=== PATIENT | male | born 1950 | race Caucasian/White ===

== ENCOUNTER 2017-05-03 22:56 | Emergency (ER) | payer MEDICARE, OTHER ==
[~2017-05-03] VITALS: Ht 167.6 cm; Wt 100.0 kg
[~2017-05-03 22:56] MED LIST: ATOR20TA PO; CANA300T PO; ECOT81TA2 PO; LISI40TA PO; MULT1TAB PO; PLAV75TA PO; VIAG100T PO; ZYVO600T PO
[2017-05-03 23:06] VITALS: PULSE 85; RESP 16; O2SAT 68
[2017-05-03] MEDS ORDERED: ETOMIDATE 20 MG/10 ML VIAL ONE (23:07)
[2017-05-03] MEDS ORDERED: SUCCINYLCHOLINE CHLORIDE 200 MG/10 ML VIAL ONE (23:08)
[2017-05-03 23:10] VITALS: BP 70/50; PULSE 65; RESP 22; O2SAT 78
[2017-05-03 23:13] VITALS: RESP 20; O2SAT 87
[2017-05-03 23:14] VITALS: O2SAT 93
[2017-05-03 23:16] LABS: AUTOMATED NEUTROPHIL # 8.5 TH/MM3 (1.8-7.7); BASOPHIL % 0.3 % (0.0-2.0); EOSINOPHIL % 0.2 % (0.0-4.0); HEMO FLAGS DIFF FINAL; LYMPHOCYTE # 2.4 TH/MM3 (1.0-4.8); MEAN CELL VOLUME 91.5 FL (80.0-100.0); MEAN CORPUSCULAR HEMOGLOBIN 28.9 PG (27.0-34.0); MEAN CORPUSCULAR HGB CONC 31.6 % (32.0-36.0); NEUT % 73.5 % (16.0-70.0); PLATELET COUNT 212 TH/MM3 (150-450); RED BLOOD COUNT 4.27 MIL/MM3 (4.50-5.90); RED CELL DISTRIBUTION WIDTH 15.1 % (11.6-17.2); WHITE BLOOD COUNT 11.5 TH/MM3 (4.0-11.0)
[2017-05-03 23:18] LABS: I-STAT POTASSIUM 2.2 MMOL/L (3.5-4.9); I-STAT SODIUM 150 MMOL/L (138-146)
[2017-05-03 23:26] VITALS: BP 135/65; PULSE 81; RESP 14; TEMP 98.1; O2SAT 99
[2017-05-03 23:26] LABS: APTT (PATIENT) 28.7 SEC (24.3-30.1); INTERNATIONAL NORMALIZED RATIO 1.1 RATIO; PROTHROMBIN TIME - PATIENT 12.1 SEC (9.8-11.6)
[2017-05-03] MEDS ORDERED: PROPOFOL 1000 MG/100 ML INJ 100 ML ONE (23:34)
[2017-05-03 23:37] LABS: MAGNESIUM 1.2 MG/DL (1.5-2.5)
[2017-05-03] MEDS ORDERED: HEPARIN-NS/PF INJ 1,000 ML ONE (23:38)
[2017-05-03 23:40] LABS: CREATINE KINASE 103 U/L (39-308)
--- NOTE | 2017-05-03 23:41 | RADRPT ---
EXAM DATE/TIME: 05/03/2017 23:15 [place] COMPARISON: No previous studies available for comparison. INDICATIONS : Stemi alert. MEDICAL HISTORY : None. SURGICAL HISTORY : CABG. ENCOUNTER: Initial ACUITY: 1 day PAIN SCORE: Non-responsive. LOCATION: Bilateral chest FINDINGS: Mild perihilar and basilar airspace disease present and could be on the basis of mild congestive hear t failure. There is mild cardiomegaly. Patient has had previous median sternotomy. No large effusion seen. No pneumothorax. Endotracheal tube tip is approximately 4 cm above the oneil. There is a nasogastric tube coursing in to the stomach. CONCLUSION: Mild bilateral perihilar and basilar airspace disease with mild cardiomegaly. Benny Holt MD on May 03, 2017 at 23:39 Board Certified Radiologist. This report was verified electronically.
[2017-05-03] MEDS ORDERED: SUCCINYLCHOLINE CHLORIDE 200 MG/10 ML VIAL IV PUSH ONE (23:45)
[2017-05-03] MEDS ORDERED: ETOMIDATE 20 MG/10 ML VIAL IVP ONE (23:45)
[2017-05-03] MEDS ORDERED: SODIUM CHLORIDE 0.9% FLUSH 10 ML FLUSH IVF PRN (23:45)
[2017-05-03 23:56] LABS: CKMB 4.4 NG/ML (0.5-3.6)
[2017-05-04 00:49] LABS: BLOOD GAS BASE EXCESS -26.7 mmol/L (-2-2); BLOOD GAS CARBOXYHEMOGLOBIN 0.4 % (0-4); BLOOD GAS HCO3 3 mmol/L (22-26); BLOOD GAS METHEMOGLOBIN 0.4 % (0-2); BLOOD GAS O2 HGB SATURATION 83 % (90-100); BLOOD GAS OXYGEN CONTENT 5.4 Vol % (12.0-20.0); BLOOD GAS PCO2 12 mmHg (38-42); BLOOD GAS PO2 72 mmHG (61-120); BLOOD GAS TOTAL HGB 4.5 G/DL (12.0-16.0); CRITICAL VALUE YES; FIO2 100 %; OXYGEN DEVICE VENTILATOR; TEMP CORR TO 98.6; VENT SETTINGS AC/14/600/PEEP5
[2017-05-04 00:50] LABS: DRAW SITE ART LINE; STAT YES
[2017-05-04] MEDS ORDERED: EPINEPHrine HCL (1:10,000) 1 MG/10 ML SYRINGE ONE (00:51)
--- NOTE | 2017-05-04 00:54 | PD ---
HPI Chief Complaint: Cardiac Complaint Time Seen by Provider: 23:08 Travel History International Travel<30 days: No Contact w/Intl Traveler<30days: No Traveled to known affect area: No History of Present Illness HPI The patient is a 66 year old male who presents to the [facility] emergency department with a history of reportedly feeling generalized weakness, lightheaded sensation, diaphoresis, and shortness of breath that began sometime prior to arrival. The patient denies having any chest pain on arrival. The patient's main complaint is shortness of breath. Upon ambulance services arrival to the patient's home the patient was noted to have a heart rate in the 60s with atrial flutter. He denies having any known history of cardiac arrhythmia. He does report having a history of coronary artery disease status post single-vessel coronary artery bypass grafting as well as a history of peripheral arterial disease. The patient reports that he takes an aspirin daily. The patient's initial blood pressure according to ambulance services was in the 50s to 60s. IV access was obtained. The patient was started on normal saline IV fluids. The patient's heart rate went down into the 40s. The patient had pacer pads applied and transcutaneous pacing was started. The patient had no improvement and the pacing was discontinued. On arrival the patient's O2 saturation is in the 70s. Preoxygenation was started and the patient is prepped for RSI. The patient's family later arrived in the emergency department and reported to the charge nurse that the patient was just seen by a new primary care physician earlier today. The patient had an ECG done that was reportedly abnormal. The patient was given a medication by the physician and had a repeat ECG done. The patient was given a new prescription which they report is up pharmacy being filled. They are not sure of the name of the medication that was provided. The patient was reportedly seen by this physician related to a couple of days of dizziness, generalized weakness, dyspnea on exertion. [facility] Past Medical History Narrative Medical The patient's past medical history is significant for coronary artery disease, peripheral arterial disease, diabetes mellitus, history of pneumonia, history of a right great toe amputation, history of peripheral neuropathy, hypertension , hyperlipidemia, obesity. The patient denies any prior history of DVT or PE. Diabetes: Yes Patient Takes Glucophage: Yes Hypertension: Yes Tetanus Vaccination: Unknown Past Surgical History Narrative Surgical The patient's past surgical history is significant for coronary artery bypass grafting times one, history of cardiac catheterization with stent placement, tonsillectomy, right great toe amputation. Cardiac Surgery: Yes (BYPASS BETWEEN ([id number])) Coronary Artery Bypass Graft: Yes Coronary Stent: Yes (x3) Tonsillectomy: Yes Social History Alcohol Use: No Tobacco Use: No Substance Use: No Allergies-Medications (Allergen,Severity, Reaction): Uncoded Allergies: metfor (Allergy, Severe, Chest Pain, 05/03/17) Reported Meds & Prescriptions Reported Meds & Active Scripts Active Active Prescriptions or Reported Medications Unobtainable Review of Systems Except as stated in HPI: all other systems reviewed are Neg General / Constitutional: No: Fever Eyes: No: Visual changes HENT: Positive: Lightheadedness, No: Headaches, Neck Stiffness, Neck Pain Cardiovascular: Positive: Diaphoresis, Dyspnea on exertion, No: Chest Pain or Discomfort Respiratory: Positive: Shortness of Breath Gastrointestinal: No: Abdominal Pain Genitourinary: No: Dysuria Musculoskeletal: No: Pain Skin: No Rash Neurologic: Positive: Weakness, Dizziness, No: Focal Abnormalities, Change in Mentation, Slurred Speech, Sensory Disturbance Psychiatric: No: Depression Endocrine: No: Polydipsia Hematologic/Lymphatic: No: Easy Bruising Physical Exam Narrative General: The patient is a well-developed, diaphoretic male, with conversational dyspnea noted on arrival and diminished O2 saturations in the 70s to 80s. Head and Neck exam: Head is normocephalic atraumatic. Eyes: EOMI, pupils are equal round and reactive to light. Nose: Midline septum with pink mucous membranes Mouth: Dentition unremarkable. Moist mucus membranes. Posterior oropharynx is not erythematous. No tonsillar hypertrophy. Uvula midline. Airway patent. Neck: No palpable lymphadenopathy. No nuchal rigidity. No thyromegaly. Cardiovascular: Regular rate and rhythm without murmurs, gallops, or rubs. The patient on telemetry appears to be in atrial flutter. Lungs: Diminished breath sounds in bilateral bases, no wheezes, rhonchi, or crackles are audible. Abdomen: Soft, without tenderness to palpation in all 4 quadrants of the abdomen. No guarding, rebound, or rigidity. Normal bowel sounds are audible. No tenderness on palpation of McBurney's point Extremities: No clubbing or cyanosis. The patient has 1+ pitting edema bilateral lower extremities. 2+ pulses in all 4 extremities. Back: No costovertebral angle tenderness to palpation. Neurologic Exam: Grossly nonfocal. Skin Exam: No rash noted. The patient is diaphoretic. The patient is pale. Data Data Last Documented VS Vital Signs Date Time Temp Pulse Resp B/P (MAP) Pulse Ox O2 Delivery O2 Flow Rate FiO2 05/03/17 23:26 98.1 81 14 135/65 (88) 99 Auto-Vent 05/03/17 23:24 100 05/03/17:17 15.00 Orders Orders Troponin I (05/03/17 23:04) Ckmb (Isoenzyme) Profile (05/03/17 23:04) Complete Blood Count With Diff (05/03/17:) I-Stat Profile (05/03/17 23:04) I-Stat Creatinine (05/03/17:04) Calcium (05/03/17:04) Magnesium (Mg) (05/03/17 23:04) Prothrombin Time / Inr (Pt) (05/03/17 23:04) Act Partial Throm Time (Ptt) (05/03/17 23:04) B-Type Natriuretic Peptide (05/03/17 23:04) Chest, Single Ap (05/03/17 23:04) Electrocardiogram (05/03/17 23:04) Oxygen Administration (05/03/17 23:04) Iv Access Insert/Monitor (05/03/17 23:04) Oximetry (05/03/17 23:04) Etomidate Inj (Amidate Inj) (05/03/17 23:07) Succinylcholine Inj (Quelicin Inj) (05/03/17 23:08) Propofol 1000 Mg/100 Ml Inj (Diprivan 10 (05/03/17 23:34) Heparin-Ns/Pf Inj (Heparin-Ns/Pf Inj) (05/03/17 23:38) CKMB (05/03/17 23:00) CKMB% (05/03/17 23:00) Admit Order (Ed Use Only) (05/04/17 00:29) Labs Laboratory Tests Test 05/03/17 23:00 White Blood Count 11.5 TH/MM3 Red Blood Count 4.27 MIL/MM3 Hemoglobin 12.3 GM/DL Bedside Hemoglobin 7.1 G/DL Hematocrit 39.0 % Bedside Hematocrit 21.0 % Mean Corpuscular Volume 91.5 FL Mean Corpuscular Hemoglobin 28.9 PG Mean Corpuscular Hemoglobin Concent 31.6 % Red Cell Distribution Width 15.1 % Platelet Count 212 TH/MM3 Mean Platelet Volume 7.6 FL Neutrophils (%) (Auto) 73.5 % Lymphocytes (%) (Auto) 21.0 % Monocytes (%) (Auto) 5.0 % Eosinophils (%) (Auto) 0.2 % Basophils (%) (Auto) 0.3 % Neutrophils # (Auto) 8.5 TH/MM3 Lymphocytes # (Auto) 2.4 TH/MM3 Monocytes # (Auto) 0.6 TH/MM3 Eosinophils # (Auto) 0.0 TH/MM3 Basophils # (Auto) 0.0 TH/MM3 CBC Comment DIFF FINAL Differential Comment Prothrombin Time 12.1 SEC Prothromb Time International Ratio 1.1 RATIO Activated Partial Thromboplast Time 28.7 SEC Bedside Sodium 150 MMOL/L Bedside Potassium 2.2 MMOL/L Bedside Chloride 118 MMOL/L Bedside Blood Urea Nitrogen 15 MG/DL Bedside Creatinine 0.9 MG/DL Bedside Glucose 228 MG/DL Calcium Level LESS THAN 5.0 MG/DL Magnesium Level 1.2 MG/DL Total Creatine Kinase 103 U/L Creatine Kinase MB 4.4 NG/ML Troponin I 2.18 NG/ML B-Type Natriuretic Peptide 324 PG/ML MDM Medical Decision Making Medical Screen Exam Complete: Yes Emergency Medical Condition: Yes Medical Record Reviewed: Yes Interpretation(s) Last Impressions Chest X-Ray 05/03/17 3684 Signed Impressions: Service Date/Time: Wednesday, May 03, 2017 23:15 - CONCLUSION: Mild bilateral perihilar and basilar airspace disease with mild cardiomegaly. Benny Holt MD Differential Diagnosis STEMI, versus pulmonary embolism, versus new-onset congestive heart failure, versus cardiac arrhythmia Narrative Course During the course of the patients emergency department visit, the patients history, examination, and differential diagnosis were reviewed with the patient. The patient had IV access obtained and blood work sent for analysis. The patient was placed on a personnel monitor with oximetry and blood pressure monitoring. The patient was hypoxic with reported shortness of breath. The patient was prepped for RSI. The patient initially ECG done on arrival shows atrial flutter/tachycardia with marked left axis deviation, a right bundle branch block is noted which the patient has a history of from reviewing his electronic medical record, however he has new ST segment elevation in lead 3 with depression noted in V2, V3, V4, V5, and V6. A STEMI alert was called. I did speak to Dr. Keyes regarding this patient's case. He requested an additional ECG be done. The patient was initially ordered to receive aspirin and nitroglycerin by drip per STEMI protocol, however the patient developed increased respiratory distress and was prepped for RSI. The patient was intubated by me with an 8 size endotracheal tube. The patient tolerated the procedure well, however the patient then proceeded to lose his pulse during chest x-ray completion. ACLS protocol was started. The patient was given epinephrine and separate doses every 3-5 minutes.Unfortunately the patient had a loss of pulses during the attempt at repeating I did communicate this to Dr. Keyes. As the patient is unstable at this time, he did not plan to take the patient to the cardiac catheterization lab. I did discuss with him administering TPA as I am also concerned about a pulmonary embolism given the patient's low O2 saturation and sudden onset of shortness of breath. He did agree with the administration of TPA, however cardiac catheterization after that would be contraindicated at that time. During the ACLS resuscitation the patient was given TPA 100 mg IV over 2 hours per protocol for unstable patient with suspected pulmonary embolism. The patient had a return of pulse and was bradycardic in the 30s. The patient was given 1 mg of atropine IV. The patient's heart rate improved to the 50s to 60s. The patient was started on transcutaneous pacer. While being transcutaneously pace the patient was noted to have runs of V. tach. The patient had V. tach with a pulse. The patient was given 150 mg of amiodarone IV. The patient's calcium came back low during the period of asystole and the patient was given calcium chloride 1 g IV. The patients laboratory studies were reviewed and remarkable for an i-STAT with creatinine that reveals a creatinine of 0.9, sodium 150, potassium 2.2, chloride 118, BUN 15, glucose 228, hemoglobin initially resulted at 7.1, however CBC them resulted at 12.3 for the patient's hemoglobin, white count 11.5 , platelets 212, with neutrophils 73.5. BNP is 324, CPK 103, CK-MB 4.4, troponin I 2.18 Radiology studies were reviewed and remarkable for a chest x-ray that shows mild bilateral perihilar and basilar airspace disease with mild cardiomegaly. I spoke to Dr. Pabon regarding this patient's case. He did come in emergently to assist with care of the patient in the emergency department. A central line was placed in the right groin by me. An arterial line in the right femoral artery was placed by him. Unfortunately, the patient then again lost his pulse while Dr. Pabon was at the bedside. The patient's time of was called at 00:59. The patient's sister, his closest relative, and his [id number] were notified regarding the patient's . ; Critical Care Narrative Aggregate critical care time was 60 minutes. Time to perform other separately billable procedures was not included in the critical care time. My time did not include minutes spent treating any other patients simultaneously or on activities that did not directly contribute to the patient's treatment. The services I provided to this patient were to treat and/or prevent clinically significant deterioration that could result in: Hypoxic brain injury related to respiratory failure, versus cardiac arrhythmia, versus cardiovascular collapse I provided critical care services requiring my management, as noted below: Chart data review, documentation time, medication orders and management, vital sign assessments/reviewing monitor data, ordering and reviewing lab tests, ordering and interpreting/reviewing x-rays and diagnostic studies, care of the patient and discussion of the patient with the admitting physicians. Procedures Procedure Narrative After the risks and benefits were discussed the following procedure was performed: INTUBATION: The patient was put in optimal position for the procedure. Rapid sequence intubation was initiated by me using 20 milligrams of etomidate IV and 100 milligrams of succinylcholine IV. The patient was intubated with a 8 cuffed endotracheal tube. Tube placement was confirmed by visualization of the tube and balloon passing through the cords, capnometry and subsequent chest x-ray. Breath sounds were equal and well aerated bilaterally postintubation. No breath sounds over stomach. Patient tolerated procedure well. CENTRAL VENOUS LINE: The site was prepped with Betadine and sterilely draped. It was infiltrated with 1% lidocaine plain. The deep vein was cannulated using normal Seldinger technique. A triple lumen central line was placed in the right femoral vein site and secured with simple interrupted suture. The site was sterilely dressed. Physician Communication Physician Communication 23:[address] Keyes the marketing development representative dermatology nurse practitioner regarding this patient's EKG and his STEMI alert criteria. The ECG was reviewed with him. He requested that an additional ECG be done. An old ECG was also provided for review by him. While in the process of hitting the patient's repeat ECG the patient was noted to have loss of pulse area the patient had ACLS protocol started. Dr. Keyes was updated that the patient was in cardiac arrest. I explained to Dr. Keyes that I was also concerned given the patient's symptoms that he could be having right heart failure and acute hypoxia with shortness of breath related to a massive pulmonary embolism. I discussed with him giving TPA emergently during the code. He was agreeable with this plan. He reported that this would contraindicate taken the patient to the cardiac catheterization lab. I spoke to Dr. Pabon regarding this patient's case. He did come in emergently to assist with care of the patient in the emergency department. A central line was placed in the right groin by me. An arterial line in the right femoral artery was placed by him. He did agree to admit the patient to the intensive care unit for close monitoring. The patient's prognosis is poor. Diagnosis Primary Impression: Shortness of breath Additional Impression: Cardiopulmonary arrest Admitting Information Admitting Physician Requests: Admit Scripts Unable to Obtain Active Prescriptions or Reported Meds Disposition: 20 Condition: Candi Pang MD May 04, 2017 00:54
--- NOTE | 2017-05-04 16:54 | EKG ---
Date Performed: 05/03/2017 Time Performed: 23:01:00 PTAGE: 66 years EKG: ATRIAL FLUTTER/TACHYCARDIA MARKED LEFT AXIS DEVIATION RIGHT BUNDLE BRANCH BLOCK ANTERIOR MY OCARDIAL INFARCTION MARKED ST DEPRESSION, CONSIDER SUBENDOCARDIAL INJURY Compared to previous tracin g, the patient now appears to be in atrial flutter ABNORMAL ECG PREVIOUS TRACING : 04/27/14 @ 1759 DOCTOR: Zoey Arevalo Interpretating Date/Time 05/04/2017 16:52:25
--- NOTE | 2017-05-04 16:54 | EKG ---
Date Performed: 05/04/2017 Time Performed: 00:06:56 PTAGE: 66 years EKG: ATRIAL FIBRILLATION Intraventricular conduction delay Compared to previous tracing, the pat ient now has an intraventricular condution delay ABNORMAL ECG PREVIOUS TRACING : 05/03/2017 23.36 DOCTOR: Zoey Arevalo Interpretating Date/Time 05/04/2017 16:53:13
== END 2017-05-04 03:40 | disposition expired ==
LOC: NEPC 22:56 → UNDOADMIN 05-04 00:31 → NEDA 05-04 00:31 → NEPC 05-04 03:40
DX: R06.02 Shortness of breath (principal); I46.9 Cardiac arrest, cause unspecified; I51.7 Cardiomegaly; I48.92 Unspecified atrial flutter; R00.0 Tachycardia, unspecified; I45.10 Unspecified right bundle-branch block; R53.1 Weakness; R42 Dizziness and giddiness; E11.42 Type 2 diabetes mellitus with diabetic polyneuropathy
CPT/HCPCS: 31500; 36556; 71010; 82310; 82435; 82550; 82552; 82565; 82805; 82947; 83735; 83880; 84132; 84295; 84484; 84520; 85025; 85610; 85730; 92950; 93005; 99291; J0171; J0330; J1644